=== PATIENT | female | born 1960 ===

== ENCOUNTER 2023-03-10 12:17 | Outpatient (REF) | payer BC, SELFPAY | END 2023-03-10 12:18 | disposition home or self-care (01) | LOC: HO.SH 12:17 | PROVIDERS: Visit Provider Physician Assistant | DX: Z01.118 Encounter for examination of ears and hearing with other abnormal findings (principal); H91.91 Unspecified hearing loss, right ear | CPT/HCPCS: 92557; 92567; 92588 ==